=== PATIENT | male | born 2000 | race Caucasian/White ===

== ENCOUNTER 2020-08-04 09:49 | Emergency (ER) | payer OTHER ==
[~2020-08-04] VITALS: Ht 195.6 cm; Wt 70.3 kg
[2020-08-04] MEDS ORDERED: ONDANSETRON HCL 4 MG/2 ML VIAL IV ONE (10:15)
[2020-08-04] MEDS ORDERED: HYDROmorphone HCL 2 MG/ML VL IV ONE (10:15)
[2020-08-04 11:45] VITALS: BP 91/45
== END 2020-08-04 12:08 | disposition home or self-care (01) ==
LOC: ER 09:49
DX: S63.259A Unspecified dislocation of unspecified finger, initial encounter (principal); X58.XXXA Exposure to other specified factors, initial encounter; Y93.89 Activity, other specified; Y92.89 Other specified places as the place of occurrence of the external cause; Y99.8 Other external cause status
CPT/HCPCS: 26770; 73110; 73130; 96374; 99284; J1170; J2405